=== PATIENT | female | born 1970 | race Caucasian/White ===

== ENCOUNTER 2017-06-02 05:33 | Inpatient (IN) | payer OTHER ==
[~2017-06-02] VITALS: Ht 167.6 cm; Wt 99.0 kg
[~2017-06-02 05:33] MED LIST: DOCU-131 PO; IBUP-1222 PO; NIFE30TA2 PO; OXYC-302 PO
[2017-06-02] MEDS ORDERED: LIDOCAINE 1%, 20ML ONE (05:41)
[2017-06-02] MEDS ORDERED: OXYTOCIN 30U/ 0.9% NaCL 500ML 500 ML IV PRN (05:41)
[2017-06-02] MEDS ORDERED: OXYTOCIN 30U/ 0.9% NaCL 500ML 500 ML IV ONE (05:41)
[2017-06-02] MEDS ORDERED: NEWBORN KIT ONE (05:41)
[2017-06-02] MEDS ORDERED: OXYTOCIN 30U/ 0.9% NaCL 500ML 500 ML ONE ×2 (05:42→14:14)
[2017-06-02] MEDS ORDERED: MISOPROSTOL 200 MCG TABLET ONE (05:42)
[2017-06-02 05:49] VITALS: BP 165/89
[2017-06-02] MEDS ORDERED: FENTANYL PF 100 MCG/2ML IV PRN (06:00)
[2017-06-02] MEDS ORDERED: FENTANYL PF 100 MCG/2ML IVPush PRN (06:00)
[2017-06-02] MEDS ORDERED: ONDANSETRON 2MG/ML, 2ML IVPush PRN (06:00)
[2017-06-02 06:05] LABS: BASOPHILS # (AUTO) 0.03 x10^3/uL (0-0.1); BASOPHILS % (AUTO) 0 % (0-1); EOSINOPHILS # (AUTO) 0.08 x10^3/uL (0-0.4); EOSINOPHILS % (AUTO) 1 % (1-7); LYMPHOCYTES # (AUTO) 2.22 x10^3/uL (1-3.4); LYMPHOCYTES % (AUTO) 32 % (22-44); MD NO; MEAN CORPUSCULAR HGB CONC 32.9 g/dL (32.4-35.8); MEAN CORPUSCULAR VOLUME 91.1 fL (80-100); MEAN PLATELET VOLUME 10.5 fL (7.4-10.4); MONOCYTES # (AUTO) 0.57 x10^3/uL (0.2-0.8); MONOCYTES % (AUTO) 8 % (2-9); NEUTROPHILS # (AUTO) 4.04 x10^3/uL (1.8-6.8); NEUTROPHILS % (AUTO) 58 % (42-75); PLATELET COUNT 227 x10^3/uL (130-400); RED BLOOD COUNT 3.89 x10^6/uL (3.82-5.3)
[2017-06-02] MEDS ORDERED: PREN-3 PO (06:07)
[2017-06-02 06:17] LABS: ALANINE AMINOTRANSFERASE 21 U/L (12-78); ALBUMIN 2.5 g/dL (3.4-5.0); ANION GAP 10 mmol/L (5-15); CALCIUM 8.8 mg/dL (8.5-10.1); CHLORIDE 110 mmol/L (98-107); CREATININE 0.82 mg/dL (0.55-1.02)
[2017-06-02] MEDS: LACTATED RINGERS 1,000 ML IV SCH ×2 (06:17→14:30)
[2017-06-02 06:20] LABS: ALKALINE PHOSPHATASE 422 U/L (45-117); BILIRUBIN,TOTAL 0.3 mg/dL (0.2-1.0); TOTAL PROTEIN 6.3 g/dL (6.4-8.2)
[2017-06-02 06:23] LABS: BILIRUBIN, DIRECT < 0.1 mg/dL (0.1-0.2)
[2017-06-02 07:25] LABS: MICROSCOPIC INDICATED
[2017-06-02 07:39] LABS: CULTURE INDICATED? YES
[2017-06-02] MEDS ORDERED: OXYcodone/APAP 5/325MG TABLET PO PRN (14:00)
[2017-06-02] MEDS ORDERED: MISOPROSTOL 200 MCG TABLET PR PRN (14:00)
[2017-06-02] MEDS ORDERED: RHOGAM FROM BLOOD BANK 1 NOTE EA IM/IV ONE (14:00)
[2017-06-02] MEDS ORDERED: MEASLES,MUMPS&RUBELLA VACC/PF 0.5 ML SQ-VACC PRN (14:00)
[2017-06-02] MEDS ORDERED: ONDANSETRON 2MG/ML, 2ML IV PRN (14:00)
[2017-06-02] MEDS ORDERED: OXYcodone IR 5MG TABLET PO PRN (14:00)
[2017-06-02] MEDS ORDERED: DOCUSATE 100 MG CAPSULE PO PRN (14:00)
[2017-06-02] MEDS ORDERED: DIPH,PERTUSS(ACELL),TET VAC/PF NC IM-VACC PRN (14:00)
[2017-06-02] MEDS ORDERED: CALCIUM CARBONATE 500 MG TAB.CHEW PO PRN (14:00)
[2017-06-02] MEDS ORDERED: IBUPROFEN 600 MG TABLET ONE (14:14)
[2017-06-02] MEDS: OXYTOCIN 30U/ 0.9% NaCL 500ML 500 ML IV SCH (14:30)
[2017-06-02] MEDS: IBUPROFEN 600 MG TABLET PO PRN (14:30)
[2017-06-02] MEDS ORDERED: LIDOCAINE 1%, 20ML INFIL ONE (15:00)
[2017-06-02 15:30] VITALS: BP 142/91
[2017-06-02 19:15] VITALS: BP 138/80
[2017-06-02 21:46] LABS: BASOPHILS # (AUTO) 0.02 x10^3/uL (0-0.1); BASOPHILS % (AUTO) 0 % (0-1); EOSINOPHILS % (AUTO) 0 % (1-7); LYMPHOCYTES # (AUTO) 1.85 x10^3/uL (1-3.4); LYMPHOCYTES % (AUTO) 16 % (22-44); MD NO; MEAN CORPUSCULAR HEMOGLOBIN 30.1 pg (27.0-34.8); MEAN CORPUSCULAR HGB CONC 33.1 g/dL (32.4-35.8); MEAN CORPUSCULAR VOLUME 90.9 fL (80-100); MEAN PLATELET VOLUME 10.4 fL (7.4-10.4); MONOCYTES # (AUTO) 0.53 x10^3/uL (0.2-0.8); MONOCYTES % (AUTO) 5 % (2-9); NEUTROPHILS # (AUTO) 9.35 x10^3/uL (1.8-6.8); NEUTROPHILS % (AUTO) 80 % (42-75); PLATELET COUNT 197 x10^3/uL (130-400); RED BLOOD COUNT 3.75 x10^6/uL (3.82-5.3); RED CELL DISTRIBUTION WIDTH 14.7 % (9.6-15.2)
[2017-06-03] VITALS (7 sets, daily range): BP systolic 125–163; BP diastolic 80–100
[2017-06-03] MEDS: PRENATAL VIT/IRON/FA 1 EACH TABLET PO SCH (09:00)
[2017-06-03] MEDS: OXYTOCIN 30U/ 0.9% NaCL 500ML 500 ML IV SCH (19:56)
[2017-06-04 02:26] VITALS: BP 149/93
[2017-06-04] MEDS: OXYTOCIN 30U/ 0.9% NaCL 500ML 500 ML IV SCH (05:56)
[2017-06-04] MEDS: PRENATAL VIT/IRON/FA 1 EACH TABLET PO SCH (07:46)
[2017-06-04] MEDS: IBUPROFEN 600 MG TABLET PO PRN (07:48)
[2017-06-04] MEDS ORDERED: niFEDipine ER 30 MG TABLET.ER PO SCH (12:30)
[2017-06-04] MEDS ORDERED: IBUP-1222 PO (12:59)
== END 2017-06-04 14:10 | disposition home or self-care (01) | DRG 774 ==
LOC: LDIP 05:33 → 2NW 15:20
PROVIDERS: ADMIT Obstetrics & Gynecology Gynecology; ATTEND Obstetrics & Gynecology Gynecology
PROC: 10E0XZZ Delivery of Products of Conception, External Approach (ICD-10-PCS; principal; 2017-06-02)
PROC: 0KQM0ZZ Repair Perineum Muscle, Open Approach (ICD-10-PCS; 2017-06-02)
PROC: 3E033VJ Introduction of Other Hormone into Peripheral Vein, Percutaneous Approach (ICD-10-PCS; 2017-06-02)
DX: O10.92 Unspecified pre-existing hypertension complicating childbirth (principal); I10 Essential (primary) hypertension; E03.9 Hypothyroidism, unspecified; Z37.0 Single live birth; E78.00 Pure hypercholesterolemia, unspecified; Z3A.38 38 weeks gestation of pregnancy; O24.420 Gestational diabetes mellitus in childbirth, diet controlled; O99.284 Endocrine, nutritional and metabolic diseases complicating childbirth; O77.0 Labor and delivery complicated by meconium in amniotic fluid; Z80.3 Family history of malignant neoplasm of breast; Z82.3 Family history of stroke; Z82.49 Family history of ischemic heart disease and other diseases of the circulatory system; Z83.3 Family history of diabetes mellitus; O70.1 Second degree perineal laceration during delivery; Z23 Encounter for immunization
CPT/HCPCS: 36415; 80053; 81001; 82248; 82803; 82962; 84550; 85025; 86850; 86900; 87086; J3490; J2590; J7120